=== PATIENT | female | born 1995 | race Caucasian/White ===

== ENCOUNTER 2018-07-19 19:28 | Emergency (ER) | payer MEDICAID, OTHER ==
[~2018-07-19] VITALS: Wt 51.6 kg
[2018-07-19 19:52] VITALS: BP 78/41; PULSE 108; RESP 18
[2018-07-19] MEDS ORDERED: ACETAMINOPHEN 500 MG TAB PO STA (22:37)
[2018-07-19] MEDS ORDERED: IBUPROFEN 800 MG TAB PO ONE (23:00)
[2018-07-19] MEDS ORDERED: ONDA4TAB14 PO (23:29)
[2018-07-19] MEDS ORDERED: OSEL75CA23 PO (23:29)
[2018-07-19] MEDS ORDERED: IBUP800T48 PO (23:29)
[2018-07-19] MEDS ORDERED: ACET500C5 PO (23:29)
--- NOTE | 2018-07-19 23:52 | ERD ---
ER Documentation Chief Complaint Chief Complaint FEVER, BODY ACHES X'S 5 DAYS HPI 23-year-old female presenting with body aches and fever times 2 days. She is a dry cough with a sore throat and runny nose. Has not taken medications for symptoms. Denies abdominal pain. Denies changes in urination or bowel movemen t. Denies medical problems. NKDA. Surgical history denies. Social history denies ROS All systems reviewed and are negative except as per history of present illness. Medications Home Meds Active Scripts Ondansetron (Ondansetron Odt) 4 Mg Tab.rapdis, 4 MG PO Q6H PRN for NAUSEA AND/OR VOMITING, #10 TAB Prov:RADHA HAYWARD PA-C 07/19/18 Acetaminophen* (Tylophen*) 500 Mg Capsule, 2 CAP PO Q8H PRN for PAIN AND OR ELEVATED TEMP, #20 CAP Prov:RADHA HAYWARD PA-C 07/19/18 Ibuprofen* (Motrin*) 800 Mg Tab, 800 MG PO Q6, #30 TAB Prov:RADHA HAYWARD PA-C 07/19/18 Oseltamivir Phosphate* (Tamiflu*) 75 Mg Capsule, 75 MG PO BID for 5 Days, CAP Prov:RADHA HAYWARD PA-C 07/19/18 Allergies Allergies: Coded Allergies: No Known Drug Allergies (Unverified Allergy, Unknown, 03/13/15) PMhx/Soc Medical and Surgical Hx: pt denies Medical Hx, pt denies Surgical Hx History of Surgery: No Anesthesia Reaction: No Hx Neurological Disorder: No Hx Respiratory Disorders: No Hx Cardiac Disorders: No Hx Psychiatric Problems: No Hx Miscellaneous Medical Probl: No Hx Alcohol Use: No Hx Substance Use: No Hx Tobacco Use: No Smoking Status: Never smoker FmHx Family History: No diabetes, No coronary disease, No other Physical Exam Vitals Vital Signs Date Temp Pulse Resp B/P (MAP) Pulse Ox O2 O2 Flow FiO2 Time Delivery Rate 07/19/18 100.8 23:41 07/19/18 102.9 22:46 07/19/18 102.9 22:46 07/19/18 102.8 108 18 78/41 (53) 97 19:52 Physical Exam GENERAL: The patient is well-appearing, well-nourished, in no acute distress HEENT: Atraumatic. Conjunctivae are pink. Pupils equal, round, and reactive to light. There is no scleral icterus. Tympanic membranes clear bilaterally. Oropharynx clear. NECK: C-spine is soft and supple. There is no meningismus. There is no cervical lymphadenopathy. . CHEST: Clear to auscultation bilaterally. There are no rales, wheezes or rhonchi. HEART: Regular rate and rhythm. No murmurs, clicks, rubs or gallops. No S3 or S4. ABDOMEN:Soft, nontender and nondistended. Good bowel sounds. No rebound or guarding. No gross peritonitis. No gross organomegaly or masses. Results 24 hrs Current Medications Medications Dose Sig/Clementina Start Time Status Last (Trade) Ordered Route PRN Stop Time Admin Dose Reason Admin Ibuprofen 800 mg ONCE ONCE 07/19/18 DC 07/19/18 (Motrin) PO 23:00 22:46 07/19/18 23:01 1,000 mg ONCE STAT 07/19/18 DC 07/19/18 Acetaminophen PO 22:37 22:46 (Tylenol 07/19/18 22:38 Tab) Procedures/MDM ER course: Ibuprofen and Tylenol given ED. Influenza A positive swab. MDM: 23-year-old female presenting with flulike symptoms. Patient had positive influenza swab ER with influenza type symptoms. I have low suspicion for meningitis or sepsis. I have low suspicion for pneumonia. Patient is discharged with supportive medications and told to follow-up with primary care within 1-2 days for close evaluation. Patient is told if symptoms change or worsen to immediately return to the ER. All questions answered at discharge Departure Diagnosis: Primary Impression: Influenza Condition: Stable Patient Instructions: Influenza (Adult) Referrals: [facility] (PCP) Additional Instructions: FOLLOW UP WITH YOUR PRIMARY CARE PHYSICIAN TOMORROW.Return to this facility if you are not improving as expected. RADHA HAYWARD PA-C Jul 19, 2018 23:52
== END 2018-07-19 23:29 | disposition home or self-care (01) ==
LOC: FTE 19:28
DX: J11.1 Influenza due to unidentified influenza virus with other respiratory manifestations (principal)
CPT/HCPCS: 87400; Z7502; Z7610; 99283

== ENCOUNTER 2018-12-15 16:43 | Emergency (ER) | payer OTHER ==
[~2018-12-15] VITALS: Ht 147.3 cm; Wt 48.7 kg
[~2018-12-15 16:43] MED LIST: ACET500C5 PO; IBUP800T48 PO; ONDA4TAB14 PO; OSEL75CA23 PO
[2018-12-15 16:48] VITALS: Ht 147.3 cm; Wt 48.7 kg
[2018-12-15] MEDS ORDERED: ACETAMINOPHEN 325 MG TAB PO ONE (18:00)
[2018-12-15] MEDS ORDERED: ACET500C5 PO (18:30)
--- NOTE | 2018-12-15 18:32 | ERD ---
ER Documentation Chief Complaint Chief Complaint HEADACHE S/P TRIP AND FALL , HIT HER HEAD ON WALL YESTERDAY , NO K/O HPI 23-year-old female slipped on a wet floor yesterday. She hit her head on a countertop. She has pain and swelling in the right parietal area. There is no history of loss of consciousness. She complains of persistent headache and dizziness. She has neck pain, deficits, weakness, visual changes or vomiting. She denies chest pain, shortness breath, additional symptoms. ROS All systems reviewed and are negative except as per history of present illness. Medications Home Meds Active Scripts Acetaminophen* (Tylophen*) 500 Mg Capsule, 1 CAP PO Q6H PRN for PAIN AND OR ELEVATED TEMP, #15 CAP Prov:YASMIN BURNS MD 12/15/18 Ondansetron (Ondansetron Odt) 4 Mg Tab.rapdis, 4 MG PO Q6H PRN for NAUSEA AND/OR VOMITING, #10 TAB Prov:RADHA HAYWARD PA-C 07/19/18 Acetaminophen* (Tylophen*) 500 Mg Capsule, 2 CAP PO Q8H PRN for PAIN AND OR ELEVATED TEMP, #20 CAP Prov:RADHA HAYWARD PA-C 07/19/18 Ibuprofen* (Motrin*) 800 Mg Tab, 800 MG PO Q6, #30 TAB Prov:RADHA HAYWARD PA-C 07/19/18 Oseltamivir Phosphate* (Tamiflu*) 75 Mg Capsule, 75 MG PO BID for 5 Days, CAP Prov:RADHA HAYWARD PA-C 07/19/18 Allergies Allergies: Coded Allergies: No Known Drug Allergies (Unverified Allergy, Unknown, 03/13/15) PMhx/Soc Medical and Surgical Hx: pt denies Medical Hx, pt denies Surgical Hx History of Surgery: No Anesthesia Reaction: No Hx Neurological Disorder: No Hx Respiratory Disorders: No Hx Cardiac Disorders: No Hx Psychiatric Problems: No Hx Miscellaneous Medical Probl: No Hx Alcohol Use: No Hx Substance Use: No Hx Tobacco Use: No Smoking Status: Never smoker FmHx Family History: No diabetes, No coronary disease, No other Physical Exam Vitals Vital Signs Date Temp Pulse Resp B/P (MAP) Pulse Ox O2 O2 Flow FiO2 Time Delivery Rate 12/15/18 98.1 76 18 114/56 98 16:48 (75) Physical Exam Const: No acute distress Head: Tenderness mild swelling in the parietal area on the right. No step- offs. Eyes: Normal Conjunctiva. Eyes Agatha and extraocular movements intact. ENT: Normal External Ears, Nose and Mouth. Neck: Full range of motion. No meningismus. No midline tenderness or deformities. Cleared by [facility] Resp: Clear to auscultation bilaterally Cardio: Regular rate and rhythm, no murmurs Abd: Soft, non tender, non distended. Normal bowel sounds Skin: No petechiae or rashes Back: No midline or flank tenderness Ext: No cyanosis, or edema Neur: Awake and alert Psych: Normal Mood and Affect Results 24 hrs Current Medications Medications Dose Sig/Clementina Start Time Status Last (Trade) Ordered Route PRN Stop Time Admin Dose Reason Admin 650 mg ONCE ONCE 12/15/18 DC 12/15/18 Acetaminophen PO 18:00 12/15/18 17:45 (Tylenol 18:01 Tab) Procedures/MDM CT brain shows no acute abnormalities. Patient presents with right parietal hematoma and pain and headache and dizziness after head injury yesterday. She is no signs of bleeding, fractures, neck injury, neurologic deficit, additional concerning signs or symptoms. We will treat with Tylenol, further observation at home and return precautions. The patient was stable with no new complaints during the ER course. Clinically, there is no current evidence to suggest meningitis, sepsis, acute abdomen, pneumonia, stroke, acute coronary syndrome, pulmonary embolism, aortic dissection or any other emergent condition appearing to require further evaluation or hospitalization. Patient counseled regarding my diagnostic impression and care plan. Prior to discharge all questions answered. Pt agrees with treatment plan and understands strict return precautions. Pt is instructed to follow up with primary care provider within 24- 48 hours. Precautionary instructions provided including instructions to return to the ER if not improving or for any worsening or changing symptoms or conc erns. Disclaimer: Inadvertent spelling and grammatical errors are likely due to EHR/dictation software use and do not reflect on the overall quality of patient care. Also, please note that the electronic time recorded on this note does not necessarily reflect the actual time of the patient encounter. Departure Diagnosis: Primary Impression: Head injury Encounter type: initial encounter Qualified Codes: S09.90XA - Unspecified injury of head, initial encounter Additional Impression: Headache Headache type: unspecified Headache chronicity pattern: unspecified pattern Intractability: not intractable Qualified Codes: R51 - Headache Condition: Stable Patient Instructions: HEAD INJURY, No Wake-Up (Adult) Additional Instructions: CT normal. Examines normal hoy. Cheque otro vez con [place] doctor primario en el proximo ojeda or regresa para mas o nueva simptomas. YASMIN BURNS MD Dec 15, 2018 18:32
[2018-12-15 18:45] VITALS: BP 115/72; PULSE 63; RESP 18
== END 2018-12-15 18:45 | disposition home or self-care (01) ==
LOC: FTE 16:43
DX: S00.83XA Contusion of other part of head, initial encounter (principal); W22.8XXA Striking against or struck by other objects, initial encounter; Y92.9 Unspecified place or not applicable
CPT/HCPCS: 70450; Z7502; Z7610